=== PATIENT | female | born 1950 | race Two or more races ===

== ENCOUNTER 2018-12-24 13:13 | Outpatient (CLI) | payer MEDICARE, OTHER ==
[~2018-12-24 13:13] MED LIST: ASPI-1265 PO; CELE200C PO; CHOL500044 PO; ENAL10TA78 PO; GLIM1TAB46 PO; HYDR-3972 PO; LEVO75TA57 PO; METH2.5T PO; PIOG30TA2 PO; PREN-129 PO; ROSU5TAB4 PO
== END 2018-12-24 23:59 | disposition home or self-care (01) ==
LOC: VAS 13:13
PROVIDERS: ATTEND Nurse Practitioner Family
DX: M71.22 Synovial cyst of popliteal space [Baker], left knee (principal); M71.21 Synovial cyst of popliteal space [Baker], right knee; R60.9 Edema, unspecified; E11.9 Type 2 diabetes mellitus without complications
CPT/HCPCS: 93970

== ENCOUNTER 2019-07-13 07:49 | Emergency (ER) | payer MEDICARE, OTHER ==
[~2019-07-13] VITALS: Ht 154.9 cm; Wt 62.2 kg
[~2019-07-13 07:49] MED LIST changes: +GLIM1TAB3 PO; -GLIM1TAB46 PO
[2019-07-13 07:55] VITALS: BP 98/70
[2019-07-13] MEDS ORDERED: METH4TAB81 PO (08:38)
== END 2019-07-13 08:59 | disposition home or self-care (01) ==
LOC: ER 07:50
DX: M79.605 Pain in left leg (principal); M79.604 Pain in right leg; R51 Headache; M54.2 Cervicalgia; M25.511 Pain in right shoulder; M25.512 Pain in left shoulder; Z79.899 Other long term (current) drug therapy; Z79.82 Long term (current) use of aspirin
CPT/HCPCS: 99283

== ENCOUNTER 2021-07-17 09:11 | Inpatient (IN) | payer MEDICARE, OTHER ==
[~2021-07-17] VITALS: Ht 154.9 cm; Wt 66.7 kg
[~2021-07-17 09:11] MED LIST changes: +AMA1T PO; -GLIM1TAB3 PO; +METH4TAB81 PO
[2021-07-17 10:03] LABS: BASOPHILS # (AUTO) 0.1 X10'3 (0-0.2); BASOPHILS % (AUTO) 1.1 % (0-1); EOSINOPHILS % (AUTO) 0.4 % (0-6); HEMATOCRIT 31.2 % (35.0-45.0); HEMOGLOBIN 10.3 g/dl (12.0-16.0); LYMPHOCYTES # (AUTO) 1.4 X10'3 (1.1-4.8); LYMPHOCYTES % (AUTO) 21.2 % (21-51); MEAN CORPUSCULAR HEMOGLOBIN 26.7 PG (27.0-31.0); MEAN CORPUSCULAR HGB CONC 32.9 g/dL (33.0-36.5); MEAN CORPUSCULAR VOLUME 81.2 FL (78-98); MEAN PLATELET VOLUME 7.4 FL (7.4-10.4); MONOCYTES # (AUTO) 0.5 X10'3 (0-0.9); MONOCYTES % (AUTO) 7.8 % (2-12); NEUTROPHILS # (AUTO) 4.6 X10'3 (1.8-7.7); NEUTROPHILS % (AUTO) 69.5 % (42-75); PLATELET COUNT 368 X10'3 (140-440); RED BLOOD COUNT 3.85 X10'6 (4.20-5.60); RED CELL DISTRIBUTION WIDTH 14.9 % (11.5-14.5); WHITE BLOOD COUNT 6.6 X10'3 (4.5-11.0)
[2021-07-17 10:45] LABS: ALANINE AMINOTRANSFERASE 215 U/L (12-78); ALBUMIN 3.4 G/DL (3.4-5.0); ALBUMIN/GLOBULIN RATIO 0.8 (1.1-1.5); ALKALINE PHOSPHATASE 74 IU/L (46-116); ANION GAP 16 (8-16); ASPARTATE AMINO TRANSFERASE 406 U/L (10-37); BILIRUBIN,TOTAL 1.6 MG/DL (0.1-1.0); BLOOD UREA NITROGEN 32 MG/DL (7-18); BUN/CREATININE RATIO 19.6 (6.6-38.0); CALCIUM 8.9 MG/DL (8.5-10.1); CHLORIDE 104 MMOL/L (99-107); CREATININE 1.63 MG/DL (0.40-0.90); GLUCOSE 162 MG/DL (70-104); POTASSIUM 4.2 MMOL/L (3.5-5.1); SODIUM 140 MMOL/L (135-145); TOTAL CARBON DIOXIDE 20.4 MMOL/L (24-32); TOTAL PROTEIN 7.7 G/DL (6.4-8.2); eGFR 31 ML/MIN
[2021-07-17 10:49] LABS: MAGNESIUM 1.1 MG/DL (1.5-2.4)
[2021-07-17 11:41] LABS: LIPASE < 50 U/L (73-393)
[2021-07-17] MEDS ORDERED: aspirin 81mg tab.chew PO ONE (11:45)
[2021-07-17] MEDS ORDERED: HYDROcodone/acetaminophen 5mg/325mg tablet PO PRN (11:55)
[2021-07-17] MEDS ORDERED: ondansetron/PF 4mg/2ml inj IV PRN (11:55)
[2021-07-17] MEDS ORDERED: dextrose ORAL solution 15 GM/59 ML bottle PO PRN ×2 (11:55)
[2021-07-17] MEDS ORDERED: glucagon, human recombinant 1mg kit SUBCUT PRN (11:55)
[2021-07-17] MEDS ORDERED: magnesium hydroxide 30ml (MOM) UD suspension PO PRN (11:55)
[2021-07-17] MEDS ORDERED: nitroGLYCERIN 0.4mg SUBLingual tab SL PRN ×2 (11:55→17:30)
[2021-07-17] MEDS ORDERED: acetaminophen 325mg tablet PO PRN ×2 (11:55)
[2021-07-17] MEDS ORDERED: morphine 2 MG/ML inj. syringe IV PRN ×2 (11:55)
[2021-07-17] MEDS ORDERED: dextrose 50%-water 50ml dispensing syringe IV PRN ×2 (11:55)
[2021-07-17] MEDS ORDERED: MESSAGE TO PHARMACY PO ONE (11:55)
[2021-07-17] MEDS ORDERED: mag hydrox/Alum hydrox/simeth 30ml oral suspension PO PRN (11:55)
[2021-07-17] MEDS ORDERED: PREN-187 PO (12:14)
[2021-07-17] MEDS ORDERED: LEVO25TA2 PO (12:14)
[2021-07-17 12:17] LABS: D-DIMER 3.04 MG/L FEU (0-0.50)
[2021-07-17 12:20] LABS: HEMOGLOBIN A1C 6.3 % (4.5-6.2)
[2021-07-17] MEDS ORDERED: ESZO2TAB31 PO (12:46)
[2021-07-17] MEDS ORDERED: PANT40TA54 PO (12:48)
[2021-07-17] MEDS ORDERED: ALEN70TA80 PO (12:48)
[2021-07-17] MEDS ORDERED: METF-900 PO (12:48)
--- NOTE | 2021-07-17 17:15 | NUR ---
PT REQUESTING SOMETHING FOR PAIN OF 8/10, 4MG MORPHINE GIVEN IV PER ADMISSION ORDERS.
[2021-07-17] MEDS ORDERED: regadenoson 0.4mg/5ml syringe IV ONE (17:30)
[2021-07-17] MEDS ORDERED: aminophylline 250mg/10ml inj. IV PRN (17:30)
[2021-07-17] MEDS ORDERED: metoprolol tartrate 1mg/ml inj IV PRN (17:30)
[2021-07-17] MEDS ORDERED: HYDROcodone/acetaminophen 10/325mg tab PO PRN (17:35)
[2021-07-17] MEDS ORDERED: zolpidem 5mg tablet PO PRN (17:35)
--- NOTE | 2021-07-17 20:21 | NUR ---
Report given to JULIA Whalen in PCU.
--- NOTE | 2021-07-17 20:30 | NUR ---
Received report from Krishna DUMONT in the ER. Pt arrived on the unit via gurney and was able to ambulate to her bed with with minimal SOB. Pt was on room air, SL and had no signs of distress. Personal belongings were placed at bedside. Will continue to monitor.
[2021-07-17 20:40] VITALS: BP 116/76
[2021-07-17] MEDS ORDERED: magnesium 4gm in 100ml NS 100 ML IV PRN (21:00)
[2021-07-17] MEDS ORDERED: potassium Cl 20 mEq SR tablet PO PRN ×2 (21:00)
[2021-07-17] MEDS: insulin glargine (Lantus) pen - multi-dose SQ SCH (21:00)
[2021-07-17] MEDS ORDERED: potassium Cl 40MEQ/1/2NS 520ml 520 ML IV PRN (21:00)
[2021-07-17] MEDS: furosemide 20 MG/2 ML vial IV SCH (21:02)
[2021-07-17] MEDS: atorvastatin 20mg tablet PO SCH (21:03)
[2021-07-17] MEDS: docusate sod 100mg capsule PO SCH (21:03)
[2021-07-17] MEDS: magnesium Cl slow-release 64mg tablet PO PRN (21:25)
[2021-07-18] VITALS (14 sets, daily range): BP systolic 98–121; BP diastolic 55–75
--- NOTE | 2021-07-18 03:37 | NUR ---
I have reviewed and agree with all interventions, assessments performed and documented by Rosalinda DUMONT .
--- NOTE | 2021-07-18 06:31 | NUR ---
Problems reprioritized. Patient report given, questions answered & plan of care reviewed with Dariel DUMONT.
--- NOTE | 2021-07-18 06:31 | NUR ---
Problems reprioritized. Patient report given, questions answered & plan of care reviewed with Dariel DUMONT.
--- NOTE | 2021-07-18 07:02 | NUR ---
Patient in room PCU 3012. I have received report from Dariel and had the opportunity to ask questions and assume patient care.
[2021-07-18 07:32] LABS: BASOPHILS # (AUTO) 0.1 X10'3 (0-0.2); EOSINOPHILS # (AUTO) 0.1 X10'3 (0-0.9); EOSINOPHILS % (AUTO) 1.4 % (0-6); HEMATOCRIT 28.7 % (35.0-45.0); HEMOGLOBIN 9.6 g/dl (12.0-16.0); LYMPHOCYTES # (AUTO) 2.7 X10'3 (1.1-4.8); LYMPHOCYTES % (AUTO) 37.2 % (21-51); MEAN CORPUSCULAR HEMOGLOBIN 26.5 PG (27.0-31.0); MEAN CORPUSCULAR HGB CONC 33.3 g/dL (33.0-36.5); MEAN CORPUSCULAR VOLUME 79.7 FL (78-98); MEAN PLATELET VOLUME 7.9 FL (7.4-10.4); MONOCYTES # (AUTO) 0.6 X10'3 (0-0.9); MONOCYTES % (AUTO) 7.5 % (2-12); NEUTROPHILS # (AUTO) 3.9 X10'3 (1.8-7.7); NEUTROPHILS % (AUTO) 52.9 % (42-75); PLATELET COUNT 287 X10'3 (140-440); RED CELL DISTRIBUTION WIDTH 15.1 % (11.5-14.5); WHITE BLOOD COUNT 7.3 X10'3 (4.5-11.0)
[2021-07-18] MEDS: K and/or MAG REPLACEMENT MC SCH ×2 (08:00→20:00)
[2021-07-18] MEDS: PNV NO.63/IRON,CARBONYL/FA/DHA 1 EACH CAPSULE PO SCH (08:00)
[2021-07-18] MEDS ORDERED: lisinopril 10 MG tablet PO SCH (08:00)
[2021-07-18] MEDS: cholecalciferol (vitamin D3) 1,000 unit (25mcg) tablet PO SCH (08:16)
[2021-07-18] MEDS: celeCOXIB 100mg capsule PO SCH (08:18)
[2021-07-18] MEDS: docusate sod 100mg capsule PO SCH ×2 (08:18→19:59)
[2021-07-18] MEDS: pantoprazole 40mg Tablet.DR PO SCH (08:18)
[2021-07-18] MEDS: levoTHYROXINE 125mcg tablet PO SCH (08:19)
[2021-07-18] MEDS: aspirin 81mg, enteric-coated 1 TAB TABLET.DR PO SCH (08:19)
[2021-07-18] MEDS: furosemide 20 MG/2 ML vial IV SCH ×2 (08:21→19:58)
[2021-07-18 08:30] LABS: ALANINE AMINOTRANSFERASE 268 U/L (12-78); ALBUMIN 2.8 G/DL (3.4-5.0); ALBUMIN/GLOBULIN RATIO 0.7 (1.1-1.5); ALKALINE PHOSPHATASE 58 IU/L (46-116); ANION GAP 12 (8-16); ASPARTATE AMINO TRANSFERASE 383 U/L (10-37); BILIRUBIN,TOTAL 1.3 MG/DL (0.1-1.0); BLOOD UREA NITROGEN 27 MG/DL (7-18); BUN/CREATININE RATIO 22.9 (6.6-38.0); CALCIUM 8.7 MG/DL (8.5-10.1); CHLORIDE 106 MMOL/L (99-107); CHOL/HDL RATIO 2.6 (0.00-4.99); CHOLESTEROL 92 MG/DL (0-200); CREATININE 1.18 MG/DL (0.40-0.90); GLUCOSE 105 MG/DL (70-104); HDL CHOLESTEROL 35 MG/DL (35-60); LDL CHOLESTEROL 49 MG/DL (50-100); MAGNESIUM 1.2 MG/DL (1.5-2.4); POTASSIUM 3.7 MMOL/L (3.5-5.1); SODIUM 141 MMOL/L (135-145); TOTAL CARBON DIOXIDE 22.9 MMOL/L (24-32); TOTAL PROTEIN 6.8 G/DL (6.4-8.2); TRIGLYCERIDES 57 MG/DL (20-135); eGFR 45 ML/MIN
--- NOTE | 2021-07-18 10:57 | NUR ---
Patient states normal small bowel movement on 07-18-21 appox. 0930 hours Addendum: 07/18/21 at 1103 by Chadwick Wu - Student SHAAN Amended: Links added.
--- NOTE | 2021-07-18 11:02 | NUR ---
Student documentation: I have reviewed and agree with all interventions, assessments performed and documented by Jose Luis, nursing scheduler.
--- NOTE | 2021-07-18 11:03 | NUR ---
Student Medication Administration: For this medication-pass time frame, all medication were reviewed, dispensed, administered and documented per hospital policy by Jose Luis nursing coordinator.
--- NOTE | 2021-07-18 11:05 | NUR ---
Page Sent promotional table spacer PAGER ID: [phone] MESSAGE: [id number] Sharon. Stress test report is available in [facility]. Jayla [id number]
[2021-07-18] MEDS: insulin Lispro (HumaLOG) vial - multi-dose SQ SCH ×2 (14:03→20:08)
--- NOTE | 2021-07-18 17:16 | NUR ---
Student documentation: I have reviewed and agree with all interventions, assessments performed and documented by Dannie . Student Medication Administration: For this medication-pass time frame, all medication were reviewed, dispensed, administered and documented per hospital policy by Dannie.
--- NOTE | 2021-07-18 18:23 | NUR ---
Problems reprioritized. Patient report given, questions answered & plan of care reviewed with Staci DUMONT . Patient eating dinner and in no acute distress.
--- NOTE | 2021-07-18 18:25 | NUR ---
Patient in room PCU 3012. I have received report from JULIA Dickerson and had the opportunity to ask questions and assume patient care.
[2021-07-18] MEDS: atorvastatin 20mg tablet PO SCH (19:59)
[2021-07-18] MEDS: carVEDilol 3.125mg tablet PO SCH (19:59)
[2021-07-18] MEDS: insulin glargine (Lantus) pen - multi-dose SQ SCH (22:31)
[2021-07-19 03:00] VITALS: BP 87/52
[2021-07-19 06:00] VITALS: BP 91/56
--- NOTE | 2021-07-19 06:24 | NUR ---
Problems reprioritized. Patient report given, questions answered & plan of care reviewed with JULIA Paez.
[2021-07-19 07:26] LABS: BASOPHILS # (AUTO) 0.1 X10'3 (0-0.2); BASOPHILS % (AUTO) 1.3 % (0-1); EOSINOPHILS # (AUTO) 0.3 X10'3 (0-0.9); EOSINOPHILS % (AUTO) 4.8 % (0-6); HEMATOCRIT 29.3 % (35.0-45.0); HEMOGLOBIN 9.9 g/dl (12.0-16.0); LYMPHOCYTES # (AUTO) 2.6 X10'3 (1.1-4.8); MEAN CORPUSCULAR HEMOGLOBIN 26.6 PG (27.0-31.0); MEAN CORPUSCULAR HGB CONC 33.7 g/dL (33.0-36.5); MEAN CORPUSCULAR VOLUME 79.1 FL (78-98); MEAN PLATELET VOLUME 7.8 FL (7.4-10.4); MONOCYTES # (AUTO) 0.5 X10'3 (0-0.9); MONOCYTES % (AUTO) 8.1 % (2-12); NEUTROPHILS # (AUTO) 2.9 X10'3 (1.8-7.7); NEUTROPHILS % (AUTO) 44.8 % (42-75); PLATELET COUNT 292 X10'3 (140-440); RED BLOOD COUNT 3.71 X10'6 (4.20-5.60); RED CELL DISTRIBUTION WIDTH 14.7 % (11.5-14.5); WHITE BLOOD COUNT 6.4 X10'3 (4.5-11.0)
[2021-07-19 07:52] LABS: ALANINE AMINOTRANSFERASE 249 U/L (12-78); ALBUMIN 2.8 G/DL (3.4-5.0); ALBUMIN/GLOBULIN RATIO 0.7 (1.1-1.5); ALKALINE PHOSPHATASE 67 IU/L (46-116); ANION GAP 11 (8-16); ASPARTATE AMINO TRANSFERASE 230 U/L (10-37); BILIRUBIN,TOTAL 1.3 MG/DL (0.1-1.0); BLOOD UREA NITROGEN 34 MG/DL (7-18); BUN/CREATININE RATIO 27.2 (6.6-38.0); CALCIUM 8.5 MG/DL (8.5-10.1); CHLORIDE 106 MMOL/L (99-107); CREATININE 1.25 MG/DL (0.40-0.90); GLUCOSE 101 MG/DL (70-104); MAGNESIUM 1.2 MG/DL (1.5-2.4); POTASSIUM 3.4 MMOL/L (3.5-5.1); SODIUM 142 MMOL/L (135-145); TOTAL CARBON DIOXIDE 24.9 MMOL/L (24-32); TOTAL PROTEIN 6.6 G/DL (6.4-8.2); eGFR 42 ML/MIN
[2021-07-19] MEDS ORDERED: lisinopril 10 MG tablet PO SCH (08:00)
[2021-07-19] MEDS: PNV NO.63/IRON,CARBONYL/FA/DHA 1 EACH CAPSULE PO SCH (08:00)
[2021-07-19] MEDS: K and/or MAG REPLACEMENT MC SCH (08:00)
[2021-07-19] MEDS ORDERED: spironolactone 25 MG tablet PO SCH (08:30)
[2021-07-19] MEDS: pantoprazole 40mg Tablet.DR PO SCH (08:32)
[2021-07-19] MEDS: furosemide 20 MG/2 ML vial IV SCH (08:32)
[2021-07-19] MEDS: docusate sod 100mg capsule PO SCH (08:32)
[2021-07-19] MEDS: celeCOXIB 100mg capsule PO SCH (08:32)
[2021-07-19] MEDS: carVEDilol 3.125mg tablet PO SCH (08:32)
[2021-07-19] MEDS: magnesium Cl slow-release 64mg tablet PO PRN (08:33)
[2021-07-19] MEDS: aspirin 81mg, enteric-coated 1 TAB TABLET.DR PO SCH (08:33)
[2021-07-19] MEDS: levoTHYROXINE 125mcg tablet PO SCH (08:33)
[2021-07-19] MEDS: cholecalciferol (vitamin D3) 1,000 unit (25mcg) tablet PO SCH (08:35)
[2021-07-19] MEDS ORDERED: FURO40TA4 PO (08:50)
[2021-07-19] MEDS ORDERED: COR3.125T PO (08:50)
[2021-07-19] MEDS ORDERED: SPIR25TA PO (08:50)
[2021-07-19] MEDS ORDERED: lisinopril 5mg tablet PO SCH (10:20)
[2021-07-19 11:00] VITALS: BP 94/64
[2021-07-19] MEDS: insulin Lispro (HumaLOG) vial - multi-dose SQ SCH (12:55)
[2021-07-19 15:00] VITALS: BP 86/55
--- NOTE | 2021-07-19 18:30 | NUR ---
Patient in room PCU 3012. I have received report from JULIA Paez and had the opportunity to ask questions and assume patient care.
--- NOTE | 2021-07-19 18:31 | NUR ---
Problems reprioritized. Patient report given, questions answered & plan of care reviewed with ESPERANZA DUMONT.
--- NOTE | 2021-07-19 20:20 | NUR ---
Patient discharged home in stable condition. Instructions given and answered all questions. Life vest education completed. T96.8, P 91, R 15, 02 sats 100% RA, B/P 91/62.
== END 2021-07-19 20:19 | disposition home or self-care (01) | DRG 291 ==
LOC: ER 09:11 → ED HOLD 11:57 → UNDOADMOB 11:57 → ED HOLD 17:37 → OBSVTOIN 17:37 → PCU 3S 20:54 → ED HOLD 20:54
PROVIDERS: ADMIT Internal Medicine; ATTEND Internal Medicine
PROC: 4A02XM4 Measurement of Cardiac Total Activity, External Approach (ICD-10-PCS; principal; 2021-07-18)
PROC: 3E073KZ Introduction of Other Diagnostic Substance into Coronary Artery, Percutaneous Approach (ICD-10-PCS; 2021-07-18)
DX: I13.0 Hypertensive heart and chronic kidney disease with heart failure and stage 1 through stage 4 chronic kidney disease, or unspecified chronic kidney disease (principal); I50.23 Acute on chronic systolic (congestive) heart failure; N17.9 Acute kidney failure, unspecified; E03.9 Hypothyroidism, unspecified; E11.22 Type 2 diabetes mellitus with diabetic chronic kidney disease; E78.5 Hyperlipidemia, unspecified; M06.9 Rheumatoid arthritis, unspecified; Z96.653 Presence of artificial knee joint, bilateral; I08.1 Rheumatic disorders of both mitral and tricuspid valves; K76.1 Chronic passive congestion of liver; I27.20 Pulmonary hypertension, unspecified; I42.8 Other cardiomyopathies; D64.9 Anemia, unspecified; G47.33 Obstructive sleep apnea (adult) (pediatric); K21.9 Gastro-esophageal reflux disease without esophagitis; M19.90 Unspecified osteoarthritis, unspecified site; R74.01 Elevation of levels of liver transaminase levels; N18.30 Chronic kidney disease, stage 3 unspecified; Z20.822 Contact with and (suspected) exposure to COVID-19; Z79.899 Other long term (current) drug therapy; Z82.49 Family history of ischemic heart disease and other diseases of the circulatory system; Z85.3 Personal history of malignant neoplasm of breast; Z87.891 Personal history of nicotine dependence; Z79.84 Long term (current) use of oral hypoglycemic drugs
CPT/HCPCS: 36415; 71045; 76700; 78452; 80053; 80061; 82948; 83036; 83690; 83735; 83880; 84443; 84484; 85025; 85379; 85610; 87081; 87635; 93005; 93017; 93306; 96374; 99285; A9500; C9803; G0378; J1815; J1940; J2270; J2785